=== PATIENT | male | born 1960 | race Caucasian/White ===

== ENCOUNTER 2020-10-01 07:02 | Outpatient (CLI) | payer BC ==
--- NOTE | 2020-10-01 10:48 | Ultrasound Report ---
PROCEDURE: Aorta Screening INDICATIONS: AAA SCREENING TECHNIQUE: Real time scanning was performed of the aorta and iliac arteries, with image documentatio n. COMPARISON: None. FINDINGS: Aorta: Proximal aortic diameter measures 2.4 cm. Mid-aorta measures 2.1 cm. Distal aortic diameter is 2.1 cm. Iliac arteries: Right common iliac artery measures 1.3 cm. Left common iliac artery measures 1.4 cm . IMPRESSION: Normal aorta and iliac arteries, in terms of diameter. Calcific and soft plaque is noted within the a alvarado, and no dissection is suspected. Reviewed by: Adair Singer MD on 10/01/2020 10:47 AM PST Approved by: Adair Singer MD on 10/01/2020 10:47 AM PST Station ID: [id number]
== END 2020-10-01 07:03 | disposition home or self-care (01) ==
LOC: DI 07:02
PROVIDERS: ATTEND Internal Medicine
DX: Z13.6 Encounter for screening for cardiovascular disorders (principal)